=== PATIENT | male | born 1985 | race African-American/Black ===

== ENCOUNTER 2017-11-29 21:32 | Emergency (ER) | payer SELFPAY ==
[~2017-11-29] VITALS: Ht 172.7 cm; Wt 91.0 kg
[2017-11-30] MEDS ORDERED: LIDOCAINE HCL 1% 20ML VIAL (Pyxis) INJ INFIL ONE (02:00)
[2017-11-30] MEDS ORDERED: LIDOCAINE HCL/PF 1% 10 MG/ML 5ML VIAL IJ NR (03:15)
[2017-11-30] MEDS ORDERED: KETOROLAC 60MG/2ML VIAL IM ONE (05:30)
[2017-11-30 05:39] VITALS: BP 114/76
== END 2017-11-30 06:44 | disposition home or self-care (01) ==
LOC: ER 22:00
DX: L02.31 Cutaneous abscess of buttock (principal); F17.200 Nicotine dependence, unspecified, uncomplicated
CPT/HCPCS: 10060; 96372; 99283; J1885; J3490; X7700; Z7610